=== PATIENT | male | born 1965 | race Hispanic/Latino ===

== ENCOUNTER 2021-05-29 05:16 | Inpatient (IN) | payer OTHER ==
[~2021-05-29] VITALS: Ht 172.7 cm; Wt 74.8 kg
[2021-05-29] MEDS ORDERED: IBUPROFEN 600 MG TAB PO STA (05:57)
[2021-05-29] MEDS ORDERED: ACETAMINOPHEN 325 MG TAB PO ONE (06:00)
[2021-05-29] MEDS ORDERED: DEXAMETHASONE SOD PHOS 10 MG/1 ML VIAL IV ONE (06:00)
[2021-05-29] MEDS ORDERED: IBUPROFEN 600 MG TAB ONE (06:31)
[2021-05-29] MEDS ORDERED: DEXAMETHASONE SOD PHOS INJ 4 MG/ML SDV ONE (06:31)
[2021-05-29] MEDS ORDERED: ACETAMINOPHEN 325 MG TAB ONE (06:32)
[2021-05-29] MEDS ORDERED: IOPAMIDOL 370 MG/ML 200 ML INFUS..BTL INJ ONE ×2 (06:44→15:47)
[2021-05-29] MEDS ORDERED: SODIUM CHLORIDE 0.9% 50ML 0 ML ONE (06:44)
[2021-05-29] MEDS ORDERED: SODIUM CHLORIDE FLUSH 10 ML SYR INJ PRN (06:45)
[2021-05-29] MEDS ORDERED: SODIUM CHLORIDE 0.9% 1000ML 1,000 ML IV SCH ×2 (06:45→07:00)
[2021-05-29] MEDS ORDERED: SODIUM CHLORIDE 0.9% 250ML 250 ML ONE ×2 (06:59→15:05)
[2021-05-29] MEDS ORDERED: CEFTRIAXONE 1 GM VIAL ONE (06:59)
[2021-05-29] MEDS ORDERED: SODIUM CHLORIDE 0.9% 50ML 50 ML ONE ×2 (07:00→15:47)
[2021-05-29] MEDS: CEFTRIAXONE 1 GM in SODIUM CHLORIDE 0.9% 50ML 50 ML IV SCH ×2 (07:00→09:00)
[2021-05-29 08:37] VITALS: BP 112/57
[2021-05-29 10:00] VITALS: BP 112/57
[2021-05-29 12:28] VITALS: BP 107/67
[2021-05-29] MEDS ORDERED: REMDESIVIR 100MG 200 MG in SODIUM CHLORIDE 0.9% 100 ML IV ONE (13:30)
[2021-05-29 16:25] VITALS: BP 113/76
[2021-05-29] MEDS: ASCORBIC ACID 500 MG TAB PO SCH (17:08)
[2021-05-29] MEDS: DEXAMETHASONE SOD PHOS 10 MG/1 ML VIAL IV SCH (17:08)
[2021-05-29] MEDS: ENOXAPARIN INJ 80 MG/0.8 ML SYR SC SCH (17:09)
[2021-05-29 20:00] VITALS: BP 115/75
[2021-05-30] VITALS (7 sets, daily range): BP systolic 99–118; BP diastolic 67–81
[2021-05-30 07:38] LABS: BASOPHILS % 0.1 % (0.0-1.0); HEMATOCRIT 45.6 % (38.2-49.6); HEMOGLOBIN 14.9 g/dL (14.0-18.0); LYMPHOCYTES % 5.5 % (18.0-39.1); MEAN CORPUSCULAR HGB CONC 32.7 g/dL (31-35); MEAN CORPUSCULAR VOLUME 94.8 fL (81-99); MONOCYTES # (AUTO) 1.4 (0.2-0.8); MONOCYTES % 7.9 % (4.4-11.3); NEUTROPHILS # (AUTO) 15.2 (2.1-6.9); NEUTROPHILS % 85.7 % (38.7-80.0); PLATELET COUNT 242 x10e3/uL (140-360); RED BLOOD COUNT 4.81 x10e6/uL (4.3-5.7); RED CELL DISTRIBUTION WIDTH 13.2 % (11.7-14.4)
[2021-05-30 07:55] LABS: ALBUMIN 3.1 g/dL (3.5-5.0); ALBUMIN/GLOBULIN RATIO 0.8 (0.8-2.0); ANION GAP 17.5 mmol/L (8-16); CALCIUM 9.4 mg/dL (8.4-10.2); CREATININE, SERUM 0.84 mg/dL (0.72-1.25); POTASSIUM 4.5 mmol/L (3.5-5.1)
[2021-05-30] MEDS ORDERED: CEFTRIAXONE 1 GM in SODIUM CHLORIDE 0.9% 50ML 50 ML IV SCH (09:00)
[2021-05-30] MEDS: ENOXAPARIN INJ 80 MG/0.8 ML SYR SC SCH ×2 (09:00→16:57)
[2021-05-30] MEDS: ZINC SULFATE 50 MG CAP PO SCH (09:00)
[2021-05-30] MEDS: ASCORBIC ACID 500 MG TAB PO SCH ×2 (09:00→16:57)
[2021-05-30] MEDS: CEFTRIAXONE 2 GM in SODIUM CHLORIDE 0.9% 100 ML IV SCH (09:00)
[2021-05-30] MEDS: REMDESIVIR 100MG 100 MG in SODIUM CHLORIDE 0.9% 100 ML IV SCH (13:20)
[2021-05-30] MEDS: DEXAMETHASONE SOD PHOS 10 MG/1 ML VIAL IV SCH (16:57)
[2021-05-31] VITALS (8 sets, daily range): BP systolic 108–126; BP diastolic 71–85
[2021-05-31 05:58] LABS: BASOPHILS % 0.1 % (0.0-1.0); HEMATOCRIT 42.6 % (38.2-49.6); HEMOGLOBIN 14.5 g/dL (14.0-18.0); LYMPHOCYTES # (AUTO) 0.8 (1.0-3.2); LYMPHOCYTES % 5.5 % (18.0-39.1); MEAN CORPUSCULAR HEMOGLOBIN 31.3 pg (28-32); MEAN CORPUSCULAR VOLUME 91.8 fL (81-99); MONOCYTES # (AUTO) 1.1 (0.2-0.8); MONOCYTES % 8.1 % (4.4-11.3); NEUTROPHILS # (AUTO) 11.8 (2.1-6.9); NEUTROPHILS % 85.4 % (38.7-80.0); PLATELET COUNT 273 x10e3/uL (140-360); RED BLOOD COUNT 4.64 x10e6/uL (4.3-5.7); RED CELL DISTRIBUTION WIDTH 13.2 % (11.7-14.4)
[2021-05-31 06:41] LABS: ALBUMIN 2.8 g/dL (3.5-5.0); ALBUMIN/GLOBULIN RATIO 0.8 (0.8-2.0); ANION GAP 13.6 mmol/L (8-16); CALCIUM 8.9 mg/dL (8.4-10.2); CREATININE, SERUM 0.78 mg/dL (0.72-1.25); POTASSIUM 4.6 mmol/L (3.5-5.1)
[2021-05-31] MEDS: CEFTRIAXONE 2 GM in SODIUM CHLORIDE 0.9% 100 ML IV SCH (09:03)
[2021-05-31] MEDS: ZINC SULFATE 50 MG CAP PO SCH (09:04)
[2021-05-31] MEDS: ENOXAPARIN 30 MG/0.3 ML SYR SC SCH ×2 (09:04→21:10)
[2021-05-31] MEDS: ASCORBIC ACID 500 MG TAB PO SCH ×2 (09:04→16:50)
[2021-05-31] MEDS: REMDESIVIR 100MG 100 MG in SODIUM CHLORIDE 0.9% 100 ML IV SCH (13:02)
[2021-05-31] MEDS: DEXAMETHASONE SOD PHOS 10 MG/1 ML VIAL IV SCH (16:50)
[2021-06-01] VITALS (8 sets, daily range): BP systolic 105–121; BP diastolic 71–84
[2021-06-01 08:16] LABS: BASOPHILS % 0.3 % (0.0-1.0); HEMATOCRIT 45.8 % (38.2-49.6); HEMOGLOBIN 15.4 g/dL (14.0-18.0); LYMPHOCYTES # (AUTO) 1.2 (1.0-3.2); LYMPHOCYTES % 9.6 % (18.0-39.1); MEAN CORPUSCULAR HEMOGLOBIN 31.7 pg (28-32); MEAN CORPUSCULAR HGB CONC 33.6 g/dL (31-35); MEAN CORPUSCULAR VOLUME 94.2 fL (81-99); MONOCYTES # (AUTO) 1.3 (0.2-0.8); MONOCYTES % 11.1 % (4.4-11.3); NEUTROPHILS # (AUTO) 9.3 (2.1-6.9); NEUTROPHILS % 77.1 % (38.7-80.0); PLATELET COUNT 334 x10e3/uL (140-360); RED BLOOD COUNT 4.86 x10e6/uL (4.3-5.7); RED CELL DISTRIBUTION WIDTH 13.1 % (11.7-14.4)
[2021-06-01 08:49] LABS: ALBUMIN 2.8 g/dL (3.5-5.0); ALBUMIN/GLOBULIN RATIO 0.7 (0.8-2.0); ANION GAP 16.4 mmol/L (8-16); CALCIUM 8.8 mg/dL (8.4-10.2); CREATININE, SERUM 0.82 mg/dL (0.72-1.25); POTASSIUM 4.4 mmol/L (3.5-5.1)
[2021-06-01] MEDS: ZINC SULFATE 50 MG CAP PO SCH (10:48)
[2021-06-01] MEDS: ENOXAPARIN 30 MG/0.3 ML SYR SC SCH ×2 (10:48→20:12)
[2021-06-01] MEDS: ASCORBIC ACID 500 MG TAB PO SCH ×2 (10:48→16:58)
[2021-06-01] MEDS: CEFTRIAXONE 2 GM in SODIUM CHLORIDE 0.9% 100 ML IV SCH (10:48)
[2021-06-01] MEDS: REMDESIVIR 100MG 100 MG in SODIUM CHLORIDE 0.9% 100 ML IV SCH (14:36)
[2021-06-01] MEDS: DEXAMETHASONE SOD PHOS 10 MG/1 ML VIAL IV SCH (16:58)
[2021-06-02] VITALS (8 sets, daily range): BP systolic 100–127; BP diastolic 72–84
[2021-06-02 09:10] LABS: BASOPHILS # (AUTO) 0.1 (0.0-0.1); BASOPHILS % 0.5 % (0.0-1.0); HEMOGLOBIN 16.5 g/dL (14.0-18.0); LYMPHOCYTES # (AUTO) 1.3 (1.0-3.2); LYMPHOCYTES % 10.8 % (18.0-39.1); MEAN CORPUSCULAR VOLUME 93.8 fL (81-99); MONOCYTES # (AUTO) 0.7 (0.2-0.8); MONOCYTES % 5.6 % (4.4-11.3); NEUTROPHILS # (AUTO) 9.2 (2.1-6.9); NEUTROPHILS % 78.5 % (38.7-80.0); PLATELET COUNT 413 x10e3/uL (140-360); RED BLOOD COUNT 5.33 x10e6/uL (4.3-5.7); RED CELL DISTRIBUTION WIDTH 12.8 % (11.7-14.4)
[2021-06-02] MEDS: ASCORBIC ACID 500 MG TAB PO SCH ×2 (09:12→17:09)
[2021-06-02] MEDS: ZINC SULFATE 50 MG CAP PO SCH (09:12)
[2021-06-02] MEDS: ENOXAPARIN 30 MG/0.3 ML SYR SC SCH ×2 (09:12→20:02)
[2021-06-02 09:30] LABS: ALBUMIN/GLOBULIN RATIO 0.8 (0.8-2.0); ANION GAP 13.2 mmol/L (8-16); CALCIUM 9.1 mg/dL (8.4-10.2); CREATININE, SERUM 0.8 mg/dL (0.72-1.25); POTASSIUM 4.2 mmol/L (3.5-5.1)
[2021-06-02] MEDS: REMDESIVIR 100MG 100 MG in SODIUM CHLORIDE 0.9% 100 ML IV SCH (13:35)
[2021-06-02] MEDS: DEXAMETHASONE SOD PHOS 10 MG/1 ML VIAL IV SCH (17:09)
[2021-06-03] VITALS: BP 95/60
[2021-06-03 04:00] VITALS: BP 94/69
[2021-06-03 08:18] VITALS: BP 93/49
[2021-06-03 08:23] VITALS: BP 91/68
[2021-06-03 08:44] VITALS: BP 91/68
[2021-06-03] MEDS: ZINC SULFATE 50 MG CAP PO SCH (09:30)
[2021-06-03] MEDS: ASCORBIC ACID 500 MG TAB PO SCH (09:30)
[2021-06-03] MEDS: ENOXAPARIN 30 MG/0.3 ML SYR SC SCH (09:30)
[2021-06-03 11:54] LABS: BASOPHILS # (AUTO) 0.1 (0.0-0.1); BASOPHILS % 0.8 % (0.0-1.0); EOSINOPHILS # (AUTO) 0.1 (0.0-0.4); EOSINOPHILS % 0.5 % (0.0-6.0); HEMATOCRIT 49.2 % (38.2-49.6); HEMOGLOBIN 16.2 g/dL (14.0-18.0); LYMPHOCYTES # (AUTO) 1.2 (1.0-3.2); LYMPHOCYTES % 10.9 % (18.0-39.1); MEAN CORPUSCULAR HGB CONC 32.9 g/dL (31-35); MEAN CORPUSCULAR VOLUME 94.1 fL (81-99); MONOCYTES # (AUTO) 1.6 (0.2-0.8); MONOCYTES % 14.7 % (4.4-11.3); NEUTROPHILS % 66.2 % (38.7-80.0); PLATELET COUNT 444 x10e3/uL (140-360); RED BLOOD COUNT 5.23 x10e6/uL (4.3-5.7); RED CELL DISTRIBUTION WIDTH 12.7 % (11.7-14.4)
[2021-06-03 12:16] LABS: ALBUMIN/GLOBULIN RATIO 0.8 (0.8-2.0); ANION GAP 15.6 mmol/L (8-16); CALCIUM 9.1 mg/dL (8.4-10.2); CREATININE, SERUM 0.88 mg/dL (0.72-1.25); POTASSIUM 4.6 mmol/L (3.5-5.1)
[2021-06-03 13:08] VITALS: BP 107/70
[2021-06-03] MEDS ORDERED: DEXAMETHASONE4 MG PO (13:17)
== END 2021-06-03 14:30 | disposition home or self-care (01) | DRG 177 ==
LOC: FSED 05:30 → ERHOLD 06:37 → MED/SURG2 08:04
PROVIDERS: ADMIT Internal Medicine; ATTEND Internal Medicine
PROC: XW033E5 Introduction of Remdesivir Anti-infective into Peripheral Vein, Percutaneous Approach, New Technology Group 5 (ICD-10-PCS; principal; 2021-05-29)
PROC: 3E0333Z Introduction of Anti-inflammatory into Peripheral Vein, Percutaneous Approach (ICD-10-PCS; 2021-05-29)
DX: U07.1 COVID-19 (principal); J12.82 Pneumonia due to coronavirus disease 2019; J96.01 Acute respiratory failure with hypoxia; B19.9 Unspecified viral hepatitis without hepatic coma; E78.5 Hyperlipidemia, unspecified; G90.1 Familial dysautonomia [Riley-Day]
CPT/HCPCS: 36415; 71046; 71260; 80053; 81003; 83735; 85025; 94799; 96374; 99284; J0456; J0696; J1100; J1650; J7030; J7050; Q9967; U0002

== ENCOUNTER 2021-11-04 22:19 | Emergency (ER) | payer OTHER ==
[~2021-11-04] VITALS: Ht 172.7 cm; Wt 68.0 kg
[~2021-11-04 22:19] MED LIST: DEXAMETHASONE4 MG PO
[2021-11-04 22:39] LABS: BASOPHILS % 0.3 % (0.0-1.0); EOSINOPHILS # (AUTO) 0.1 (0.0-0.4); EOSINOPHILS % 0.8 % (0.0-6.0); HEMATOCRIT 49.8 % (38.2-49.6); HEMOGLOBIN 16.6 g/dL (14.0-18.0); LYMPHOCYTES # (AUTO) 1.8 (1.0-3.2); LYMPHOCYTES % 15.5 % (18.0-39.1); MEAN CORPUSCULAR HEMOGLOBIN 31.7 pg (28-32); MEAN CORPUSCULAR HGB CONC 33.3 g/dL (31-35); MEAN CORPUSCULAR VOLUME 95.2 fL (81-99); MONOCYTES % 8.7 % (4.4-11.3); NEUTROPHILS # (AUTO) 8.7 (2.1-6.9); NEUTROPHILS % 74.4 % (38.7-80.0); PLATELET COUNT 227 x10e3/uL (140-360); RED BLOOD COUNT 5.23 x10e6/uL (4.3-5.7); RED CELL DISTRIBUTION WIDTH 12.5 % (11.7-14.4)
[2021-11-04 22:52] LABS: ANION GAP 15.9 mmol/L (8-16); BLOOD UREA NITROGEN 16 mg/dL (7-26); BUN/CREATININE RATIO 13 (6-25); CALCIUM 9.4 mg/dL (8.4-10.2); CARBON DIOXIDE 25 mmol/L (22-29); CHLORIDE 102 mmol/L (98-107); CREATINE KINASE 158 IU/L (30-200); CREATININE, SERUM 1.22 mg/dL (0.72-1.25); EST GLOMERULAR FILTRATION RATE 61 ML/MIN (60-); GLUCOSE 108 mg/dL (74-118); POTASSIUM 3.9 mmol/L (3.5-5.1); SODIUM 139 mmol/L (136-145)
[2021-11-05 00:33] LABS: CREATINE KINASE 106 IU/L (30-200)
[2021-11-05 00:57] VITALS: BP 131/76
== END 2021-11-05 00:43 | disposition home or self-care (01) ==
LOC: ER 22:23
DX: R00.2 Palpitations (principal); R07.89 Other chest pain
CPT/HCPCS: 36415; 71045; 80048; 82550; 82553; 84484; 85025; 93005; 99283